=== PATIENT | female | born 1955 | race Caucasian/White ===

== ENCOUNTER 2022-05-27 06:42 | Emergency (ER) | payer OTHER ==
[2022-05-27 07:26] LABS: BASOPHIL 0.5 % (0-2); EOSINOPHIL 0.3 % (0-7); HCT 42.1 % (37.0-47.0); HGB 14.1 g/dl (12.5-16.0); LYMPHOCYTE 21.9 % (15-48); MCH 29.9 pg (25.0-31.0); MCHC 33.5 g/dL (32.0-36.0); MCV 89.2 fL (78.0-100.0); MONOCYTE 2.7 % (0-12); MPV 9.8 fL (6.0-9.5); NEUTROPHIL 74.3 % (41-80); NRBC 0; PLT 248 K/uL (150-400); RBC 4.72 M/uL (4.20-5.40); RDW 13.2 % (11.5-14.0); WBC 6.3 K/uL (4.0-10.5)
[2022-05-27 07:45] LABS: ALBUMIN 4.1 g/dL (3.4-5.0); ALKALINE PHOSHATASE 76 U/L (46-116); ALT 14 U/L (14-59); AST 12 U/L (15-37); BILIRUBIN - TOTAL 0.3 mg/dL (0.2-1.0); BUN 19 mg/dL (7-18); BUN/CREAT RATIO (CALC) 36.5 RATIO; CHLORIDE 103 mmol/L (98-107); CO2 (BICARBONATE) 24 mmol/L (21-32); CREATININE 0.52 mg/dL (0.51-0.95); GLOBULIN (CALCULATION) 3.2 g/dL; GLUCOSE 198 mg/dL (74-106); POTASSIUM 3.6 mmol/L (3.5-5.1); TOTAL PROTEIN 7.3 g/dL (6.4-8.2)
[2022-05-27] MEDS ORDERED: NAPROXEN500 MG PO (08:03)
== END 2022-05-27 08:17 | disposition home or self-care (01) ==
LOC: FER 06:42
PROVIDERS: Emergency Medicine
DX: M94.0 Chondrocostal junction syndrome [Tietze] (principal); I10 Essential (primary) hypertension; E11.9 Type 2 diabetes mellitus without complications; Z79.84 Long term (current) use of oral hypoglycemic drugs; Z79.899 Other long term (current) drug therapy
CPT/HCPCS: 36415; 71045; 80053; 84484; 85025; 93005